=== PATIENT | female | born 1985 | race Caucasian/White ===

== ENCOUNTER 2021-03-06 09:45 | Emergency (ER) | payer MEDICAID, SELFPAY ==
[2021-03-06 09:49] VITALS: BP 111/82; PULSE 109; RESP 17; TEMP 36.3; O2SAT 93
--- NOTE | 2021-03-06 10:10 | ED.GENADUL_ITS ---
Discharge Plan Disposition Patient Disposition: HOME Condition: Stable Discharge Details Clinical Impression: Rash Primary Care Provider: Kamala Vilchis V ED Provider: Eber Schwab Home Meds and New Rx's Prescriptions: New fluconazole 150 mg tablet 150 mg PO QWEEK Qty: 2 RF: 0 prednisone 20 mg tablet 60 mg PO DAILY 5 Days Qty: 15 RF: 0 Discharge Instructions Instructions: Tinea Corporis (ED) Additional Instructions: you can take benadryl for the itching as well, follow dosing instructions on the packaging you can apply over the counter clotrimazole cream/ointment as well to the rash if not better after finishing the medications have the rash evaluated again if you feel more ill, have difficulty breathing or fevers return to the emergency department Medical Decision Making 36 yo female who denies chronic medical problems comes in with rash for 2 days on her back then spread to her chest and neck. She states the rash is itchy otherwise no other symptoms and feels well, denies dyspnea, gi symptoms or fevers. No new medications or environmental exposures she is aware of. She has multiple various size ring shaped rashes with central clearing and appears scaly which seems most consistent with tinea corporis. It does not slough, no erythema to suggest cellulitis and no mucous membrane involvement. Given the widespread nature of the rash will treat with fluconazole and have her use otc clotrimazole and for the itching try a short course of a steroid. Advised if the rash isn't improving with this to have it evaluated again and return precautions given Differential Diagnosis Differential Diagnosis: ringworm, hives HPI General Mode of arrival: ambulatory . Date/Time Provider Initiated Documentation: 03/06/21 09:45 . Limitations to Documentation: no limitations . Information obtained by: patient . History of Present Illness 36 year old F presents to the emergency department with the chief complaint of rash, described as moderate, Quality is described as other (itchy), and is localized to the neck, chest and back. Patient started experiencing this day(s) (2) and it has been constant. No relieving factors improve symptom(s), No exacerbating factors reported . Patient notes no other symptoms.. Patient did receive the following treatments prior to arrival, none Related Data Home Medications Medication Instructions Recorded Confirmed fluconazole 150 mg PO QWEEK #2 tab 03/06/21 prednisone 60 mg PO DAILY 5 Days #15 tab 03/06/21 Previous Rx's Medication Instructions Recorded fluconazole 150 mg PO QWEEK #2 tab 03/06/21 prednisone 60 mg PO DAILY 5 Days #15 tab 03/06/21 Allergies Allergy/AdvReac Type Severity Reaction Status Date / Time No Known Allergies Allergy Unverified 03/06/21 09:53 General Stated Complaint: RashLesion KE: 5 Review of Systems All systems reviewed & are unremarkable except as noted in HPI and below Constitutional Constitutional: Denies chills, Denies fever(s) and Denies weakness Cardiovascular Cardiovascular: Denies chest pain and Denies dyspnea Respiratory Respiratory: Denies cough and Denies dyspnea Gastrointestinal Gastrointestinal: Denies abdominal pain, Denies nausea and Denies vomiting Musculoskeletal Musculoskeletal: Denies joint swelling Neurologic Neurologic: Denies weakness [facility] Social History Smoking/Tobacco Use Status: Current every day Smoking risk assessment performed?: Yes Alcohol Intake: current Alcohol Intake frequency: a few times a week Drug use: Never Do you feel safe at home: Yes Do you feel safe in your relationship?: Yes Exam Const General: no acute distress Orientation: alert HENMT Head: normal to inspection Ears: external ears normal General nose exam: external nose normal Mouth: moist mucous membranes Eyes General: appearance normal, both eyes and all related structures Neck Neck: normal visual inspection Resp Effort & Inspection: normal respiratory effort and able to speak in complete sentences Cardio Rate: regular rate Skin General skin exam: elasticity normal Neuro General: patient alert and patient oriented x3 Extrem General: normal to inspection Psych Mental Status: mental status grossly normal Course Vital Signs Vital signs: Vital Signs Temperature 36.3 C L 03/06/21 09:49 Pulse 109 H 03/06/21 09:49 Respiratory Rate 17 03/06/21 09:49 Blood Pressure 111/82 03/06/21 09:49 Pulse Oximetry 93 03/06/21 09:49 Temperature 36.3 C L 03/06/21 09:49 Temperature Source Temporal Artery Scan 03/06/21 09:49 Pulse 109 H 03/06/21 09:49 Respiratory Rate 17 03/06/21 09:49 Respiratory Effort Non-Labored 03/06/21 09:54 Blood Pressure 111/82 03/06/21 09:49 Pulse Oximetry 93 03/06/21 09:49 Oxygen Delivery Method Room Air 03/06/21 09:49 Oxygen Flow Rate 0 03/06/21 09:49 Pain Level 0 03/06/21 09:49
== END 2021-03-06 10:16 | disposition home or self-care (01) ==
PROVIDERS: Emergency Provider Emergency Medicine; PCP Family Medicine
DX: R21 Rash and other nonspecific skin eruption (principal); B35.4 Tinea corporis
CPT/HCPCS: 99283

== ENCOUNTER 2021-03-19 09:34 | Emergency (ER) | payer MEDICAID, SELFPAY ==
[2021-03-19 09:38] VITALS: BP 118/83; PULSE 124; RESP 18; TEMP 36.6; O2SAT 96
[2021-03-19 09:51] VITALS: PULSE 114
--- NOTE | 2021-03-19 09:55 | ED.GENADUL_ITS ---
Discharge Plan Disposition Patient Disposition: HOME Condition: Stable Discharge Details Clinical Impression: Pityriasis rosea Primary Care Provider: Kamala Vilchis V ED Provider: Uyen Mar Home Meds and New Rx's Prescriptions: New hydroxyzine HCl 50 mg tablet 50 mg PO QID PRN (Reason: itching) Qty: 20 RF: 0 Discharge Instructions Instructions: Pityriasis rosea (ED) Additional Instructions: Your exam and history most consistent with pityriasis rosea. I have attached s ome educational information on this. You may use the hydroxyzine as prescribed to help with the itching. This can cause some drowsiness. Please encourage hydration. Please do not drink alcohol while taking this medication. Syphilis testing has been sent. As we discussed, this can cause a similar rash although less likely based on your history. We will call you with any positive results. We will also referral for local primary care, her care management team will reach out to you with an appointment in the next 1 to 2 weeks for reevaluation If you develop fever/chills, difficulty breathing, breath or other new/worsening symptoms please seek care urgently once again. Referrals: Kamala Vilchis MD [Primary Care Provider] - Medical Decision Making Patient is a pleasant 36-year-old female presenting today with chief complaint of rash. Patient was seen here on 03/06/2021 at which time she had similar rash at that time present on her back, neck and chest. She was treated at that time for fluconazole and prednisone. Despite this, the rash continued to spread. States that rash continues on the back and is now on the chest and abdomen. She reports is intensely itchy. She has been using topical steroids with no relief of her symptoms Patient status post tubal ligation. On exam, she appears nontoxic. She is tachycardic but this is downtrending. She reports quite anxious as well as had large amount of caffeine. She has scattered salmon-colored slightly raised lesions to her entire torso. Many of these do appear dry. Some have a more clear centers and others. Varying shapes and sizes. This does spare the area under the breast. No lesions on his face. Patient also been concerned about an area of swelling to the right lateral inferior eyelid which she noted yesterday. This area is most concerning for [place] only him. I not appreciate any significant erythema or tenderness to suggest infectious pathology. I do not see any evidence to suggest eye involvement. I recommended warm compresses. I advised he try to clean with baby shampoo. We discussed return precautions for this. Patient is able to show me a large ring lesion on the right shoulder which is larger than the others. She states that this is where initially began. On exam, I am concerned that this is a herald patch stent with pityriasis rosea. I discussed this concern with the patient. She has been using topical steroids. Failed treatment with steroids as well as antifungals. Plan to treat with Atarax to help with symptomatic management. Patient does not have a local primary care. Have asked that care management recheck to the patient with follow-up in the next 1 to 2 weeks for reevaluation of her rash. Return precautions were discussed. We will give her a dose of Atarax here. Patient was initially tachycardic with come down when at rest. I would associate with anxiety as well as her having an energy drink just prior to arrival. I do not see any evidence to suggest systemic illness. All of her questions and concerns were addressed and she is agreement this plan. HPI General Mode of arrival: ambulatory . Date/Time Provider Initiated Documentation: 03/19/21 09:55 . Limitations to Documentation: no limitations . Information obtained by: patient, RN notes reviewed and old records reviewed . History of Present Illness 36 year old F presents to the emergency department with the chief complaint of rash, described as severe, with intensity rated at 8. Quality is described as other (rash, itching), and is localized to the chest, back and abdomen. Patient started experiencing this day(s) and it has been constant. No relieving factors improve symptom(s), No exacerbating factors reported . Patient notes no other symptoms.. Patient did receive the following treatments prior to arrival, none Related Data Home Medications Medication Instructions Recorded Confirmed hydroxyzine HCl 50 mg PO QID PRN #20 tab 03/19/21 Previous Rx's Medication Instructions Recorded hydroxyzine HCl 50 mg PO QID PRN #20 tab 03/19/21 Allergies Allergy/AdvReac Type Severity Reaction Status Date / Time No Known Allergies Allergy Unverified 03/19/21 09:41 General Stated Complaint: RashLesion KE: 3 Review of Systems Constitutional Constitutional: Reports as per HPI, Denies chills and Denies fever(s) Eyes Eyes: Reports other (focal area of swelling inferior lateral right lid) ENT Ears, Nose, Mouth, and Throat: Denies mouth lesions, Denies odynophagia, Denies sore throat and Denies throat swelling Cardiovascular Cardiovascular: Denies chest pain and Denies dyspnea Respiratory Respiratory: Reports as per HPI and Denies dyspnea Gastrointestinal Gastrointestinal: Denies change in bowel habits, Denies nausea, Denies odynophagia and Denies vomiting Musculoskeletal Musculoskeletal: Reports as per HPI Integumentary/Breasts Skin/Breast: Reports as per HPI Neurologic Neurologic: Reports as per HPI, Denies sensory deficit and Denies paresthesias Allergic/Immunologic Allergic/Immunologic: Denies throat swelling PFSH Social History Smoking/Tobacco Use Status: Current every day Tobacco Type: cigarettes Smoking risk assessment performed?: Yes Alcohol Intake: current Alcohol Intake frequency: a few times a week Drug use: Never Substance use type: does not use Do you feel safe at home: Yes Do you feel safe in your relationship?: Yes Exam Const General: cooperative, healthy appearing, comfortable, no acute distress and well developed Nutritional Appearance: average body habitus and well nourished Orientation: alert and awake HENMS Head: normal to inspection Face and sinus: normal facial exam Mouth: oral mucosae normal, lip normal, tongue normal and oropharynx normal Throat: posterior oropharynx normal Eyes Eyes/upper lids images: 1. Small area of swelling with small white dot consistent with corneal lamp. Does not appear acutely infected. Does not involve the eye itself. No tearing, discharge, discoloration of conjunctiva Chest Chest: rash (Scattered small erythematous dry lesions. None noted under breast tissue) Resp Effort & Inspection: normal respiratory effort, able to speak in complete sentences and no respiratory distress Auscultation: clear to auscultation bilaterally Cardio Rate: regular rate Rhythm: regular rhythm Heart Sounds: S1 normal and S2 normal GI Inspection: other (rash) Skin Rashes: rashes noted (Patient has salmon-colored circular dry lesions to torso) Neuro General: patient alert and patient awake Cognition: normal cognition Speech: speech normal Gait: normal gait Sensory Exam: no sensory deficits noted Psych Appearance: grossly normal and well kempt Mental Status: mental status grossly normal Speech and Movement: speech and movement normal Course Vital Signs Vital signs: Vital Signs Temperature 36.6 C 03/19/21 09:38 Pulse 124 H 03/19/21 09:38 Respiratory Rate 18 03/19/21 09:38 Blood Pressure 118/83 03/19/21 09:38 Pulse Oximetry 96 03/19/21 09:38 Temperature 36.6 C 03/19/21 09:38 Temperature Source Skin 03/19/21 09:38 Pulse 114 H 03/19/21 09:51 Respiratory Rate 18 03/19/21 09:38 Respiratory Effort Non-Labored 03/19/21 09:45 Blood Pressure 118/83 03/19/21 09:38 Blood Pressure Position Supine 03/19/21 09:38 Pulse Oximetry 96 03/19/21 09:38 Oxygen Delivery Method Room Air 03/19/21 09:38 Oxygen Flow Rate 0 03/19/21 09:38 Pain Level 8 03/19/21 09:38 Comment 03/19/21 09:51
--- NOTE | 2021-03-19 10:25 | NUR.NOTE ---
referral to cm for pcp for rash
[2021-03-19] MEDS: hydrOXYzine HCL 25 MG TAB 50 MG PO (10:26)
[2021-03-19 10:45] VITALS: PULSE 110
[2021-03-21 10:38] LABS: Syphilis Serology (RPR) Negative (Negative)
== END 2021-03-19 10:46 | disposition home or self-care (01) ==
PROVIDERS: Emergency Provider Physician Assistant; PCP Family Medicine
DX: L42 Pityriasis rosea (principal)
CPT/HCPCS: 36415; 99283; 86592

== ENCOUNTER 2022-02-01 23:07 | Emergency (ER) | payer MEDICAID, SELFPAY ==
[2022-02-01 23:36] VITALS: BP 123/87; PULSE 104; RESP 18; TEMP 36.8; O2SAT 96
--- NOTE | 2022-02-01 23:41 | ED.GENADUL_ITS ---
Discharge Plan Disposition Patient Disposition: HOME Condition: Improving Discharge Details Clinical Impression: Odontalgia Primary Care Provider: Kamala Vilchis V ED Provider: Adriel Toussaint Home Meds and New Rx's Prescriptions: New penicillin V potassium 500 mg tablet 500 mg PO TID 10 Days Qty: 30 0RF Discharge Instructions Instructions: Toothache (ED) Additional Instructions: Please call your dentist in the morning and make An appointment for follow-up. Take penicillin 4 times daily for the first day and then 3 times daily by prescription for 10 days. Warm salt water gargles will aid in speeding healing. Tylenol and/or ibuprofen as needed for pain. May use dental wax for comfort. Return for any acute concern or worsening. Medical Decision Making 37-year-old female presents from home with 2+ days of achy right jaw pain. She had a broken tooth there for some time and previous dental infections. Today shows evidence of periapical infection surrounding tooth #2. Discussed with her local anesthetic which she declines. We will place her on a course of penicillin and she is to follow-up with her dentist. She understands indications to seek reevaluation. HPI General Mode of arrival: ambulatory . Date/Time Provider Initiated Documentation: 02/01/22 23:26 . Limitations to Documentation: no limitations . Information obtained by: patient . History of Present Illness 37 year old F presents to the emergency department with the chief complaint of Right upper dental pain, broken tooth, described as moderate and similar to prior episodes, Quality is described as dull and constant, and is localized to the mouth and right. Patient reports no radiation. Patient started experiencing this day(s) and it has been intermittent. No relieving factors improve symptom(s), No exacerbating factors reported . Patient notes denies fever/chills, nausea/vomiting and shortness of breath. Patient did receive the following treatments prior to arrival, NSAID Related Data Home Medications Medication Instructions Recorded Confirmed penicillin V potassium 500 mg 500 mg PO TID 10 days #30 tabs 02/01/22 tablet Previous Rx's Medication Instructions Recorded penicillin V potassium 500 mg 500 mg PO TID 10 days #30 tabs 02/01/22 tablet Allergies Allergy/AdvReac Type Severity Reaction Status Date / Time No Known Allergies Allergy Unverified 02/01/22 23:37 General Stated Complaint: DentalOral KE: 4 Review of Systems Narrative: No drooling, no fever, no change to voice. Otherwise well. 6 systems were reviewed PFS All Active Problems (Updated 02/01/22 @ 23:43 by Adriel Toussaint MD) Rash (Acute) Pityriasis rosea (Acute) Odontalgia (Acute) Social History Smoking/Tobacco Use Status: Current every day Tobacco Type: cigarettes Smoking risk assessment performed?: Yes Alcohol Intake: current Alcohol Intake frequency: a few times a week Drug use: Never Substance use type: does not use Do you feel safe at home: Yes Do you feel safe in your relationship?: Yes Exam Narrative Exam Narrative: GEN: awake, alert, oriented 3. Pleasant, well groomed, interactive. HEAD: Normocephalic, atraumatic ENT: Mucous membranes moist, oropharynx with 3 broken costs of tooth #2. Surrounding mild buccal swelling without fluctuance, tympanic membranes occluded with cerumen, External ear exam unremarkable EYES: PERRL, EOMI NECK: Full ROM, no EDITH, no menigismus CHEST/RESP: Nontender, clear to auscultation bilateral, no wheeze/rhonchi/rales CARDIOVASCULAR: RRR, no murmur, rub rupert. 2+ Rad pulse bilateral Neuro: Grossly normal neurologic exam, conversant, interactive. Psych: Speech fluent, thoughts congruent, affect normal Course Vital Signs Vital signs: Vital Signs Temperature 36.8 C 02/01/22 23:36 Pulse 104 H 02/01/22 23:36 Respiratory Rate 18 02/01/22 23:36 Blood Pressure 123/87 02/01/22 23:36 Pulse Oximetry 96 02/01/22 23:36 Temperature 36.8 C 02/01/22 23:36 Temperature Source Skin 02/01/22 23:36 Pulse 104 H 02/01/22 23:36 Respiratory Rate 18 02/01/22 23:36 Blood Pressure 123/87 02/01/22 23:36 Blood Pressure Position Sitting 02/01/22 23:36 Pulse Oximetry 96 02/01/22 23:36 Oxygen Delivery Method Room Air 02/01/22 23:36 Oxygen Flow Rate 0 02/01/22 23:36 Pain Level 9 02/01/22 23:36
[2022-02-01] MEDS: Penicillin V POTASSIUM 500 MG TAB, 4 TABS/BTL PO (23:45)
== END 2022-02-01 23:48 | disposition home or self-care (01) ==
PROVIDERS: Emergency Provider Emergency Medicine; PCP Family Medicine
DX: K04.5 Chronic apical periodontitis; F17.210 Nicotine dependence, cigarettes, uncomplicated
CPT/HCPCS: 99283; 99284

== ENCOUNTER 2022-11-19 04:48 | Emergency (ER) | payer MEDICAID, SELFPAY ==
[2022-11-19 04:51] VITALS: BP 125/84; PULSE 105; RESP 18; TEMP 36.6; O2SAT 96
--- NOTE | 2022-11-19 05:04 | ED.GENADUL_ITS ---
Discharge Plan Disposition Patient Disposition: Home Condition: Stable Discharge Details Clinical Impression: Cervical myofascial strain, Cervical radiculopathy Primary Care Provider: Kamala Vilchis V ED Provider: Trang Bain Home Meds and New Rx's Prescriptions: New methocarbamol 500 mg tablet 500 mg PO Q6H PRN (Reason: muscle spasm) Qty: 14 0RF prednisone 20 mg tablet See Rx Instructions .ROUTE .COMPLEX Qty: 18 0RF Rx Instructions: Take 3 tabs daily for 3 days, then 2 tabs daily for 3 days, then 1 tab daily for 3 days. Discharge Instructions Instructions: Cervical Strain (ED), Cervical Radiculopathy (ED) Additional Instructions: Your symptoms appear consistent with a cervical strain causing referred pain to your right shoulder and right upper arm. Alternate ice and heat to the affected area(s) several times daily for 20 minutes at a time. Alternate tylenol and motrin as needed and directed for pain. Prescriptions for steroids and muscle relaxers have been sent electronically to your pharmacy to take as directed. You have been placed on care management list to arrange for a follow-up appointment with the primary care doctor to establish care and for reevaluation in the next 2 weeks. Return immediately to the emergency department if you develop any worsening or new concerning symptoms. Discharge Data Discharge Date/Time-TO BE ENTERED AT DEPARTURE: 11/19/22 05:32 Discharge Physician: Trang Bain Medical Decision Making 37-year-old female presents with right shoulder and right upper posterior arm pain for the past 2 days that she awoke with from sleep. Denies any paresthesias, chest pain, headache or difficulty breathing. Patient appears fairly comfortable and nontoxic. She has reproducible pain in her right cervical paraspinal region and right trapezius with extension, rotation and side bending of her head. She is tenderness to palpation of the right cervical paraspinal region and along the right trapezius. She is no reproducible pain in her right shoulder or elbow with range of motion. There is no midline cervical spinal tenderness. She has no focal deficits in the bilateral upper extremities and is neurovascularly intact with palpable distal upper extremity pulses. Negative Spurling's test on the right. Suspect cervical strain/spasm with radicular pain. As she has no focal deficits, no indication for urgent cervical spine imaging at this time. She has no sore throat, fever or posterior headache to suggest an acute infectious causes. Patient drove herself to the ED. Urine test ordered but she declined and denies . She was given a dose of prednisone and ibuprofen here. Prescriptions for prednisone and methocarbamol sent electronically to her pharmacy. Advised to follow up with the primary care doctor for re-evaluation. Usual and customary return precautions given prior to discharge. Medical Records Medical records reviewed: Yes I reviewed the patient's medical records. HPI General Mode of arrival: ambulatory . Date/Time Provider Initiated Documentation: 11/19/22 04:52 . Limitations to Documentation: no limitations . Information obtained by: patient . HPI Narrative: Patient is a 37-year-old [id number] female who presents with right shoulder and upper arm pain for the past 3 days after she awoke with it in the or[place]. Patient states she awoke with pain 2 mornings ago noted in her right trapezius and right upper posterior arm. She states the pain is worse with laying down and better with lifting her arm above her head. She denies any tingling or weakness in her right arm. She has used [id number] topical lotions, ointments and salves without relief. She has taken Aleve and Tylenol without relief. Patient has not taken any medication for this yet this morning. She denies any known injury. Patient denies any fever, sore throat, chest pain, difficulty breathing. Related Data Home Medications Medication Instructions Recorded Confirmed methocarbamol 500 mg tablet 500 mg PO Q6H PRN muscle spasm #14 11/19/22 tabs prednisone 20 mg tablet See Rx Instructions .Route 11/19/22 .COMPLEX #18 tabs Previous Rx's Medication Instructions Recorded methocarbamol 500 mg tablet 500 mg PO Q6H PRN muscle spasm #14 11/19/22 tabs prednisone 20 mg tablet See Rx Instructions .Route 11/19/22 .COMPLEX #18 tabs Allergies Allergy/AdvReac Type Severity Reaction Status Date / Time No Known Allergies Allergy Unverified 11/19/22 04:54 General Stated Complaint: Orthopedic KE: 4 Review of Systems All systems reviewed & are unremarkable except as noted in HPI and below Constitutional Constitutional: Reports as per HPI, Denies chills and Denies fever(s) Eyes Eyes: Denies blurry vision ENT Ears, Nose, Mouth, and Throat: Denies dizziness, Reports neck pain, Denies sore throat and Denies throat swelling Cardiovascular Cardiovascular: Denies chest pain and Denies dyspnea Respiratory Respiratory: Denies cough and Denies dyspnea Gastrointestinal Gastrointestinal: Denies abdominal pain, Denies diarrhea and Denies vomiting Genitourinary Genitourinary: Denies hematuria and Denies dysuria Musculoskeletal Musculoskeletal: Denies back pain, Reports neck pain and Denies numbness Comments: Right shoulder/upper arm pain Integumentary/Breasts Skin/Breast: Denies lesions and Denies rash Neurologic Neurologic: Denies dizziness, Denies localized weakness and Denies numbness Allergic/Immunologic Allergic/Immunologic: Denies throat swelling PFSH All Active Problems (Updated 11/19/22 @ 05:22 by Trang Bain DO) Rash (Acute) Pityriasis rosea (Acute) Cervical myofascial strain (Acute) Cervical radiculopathy (Acute) Social History Smoking/Tobacco Use Status: Current every day Tobacco Type: cigarettes Smoking risk assessment performed?: Yes Alcohol Intake: current Alcohol Intake frequency: a few times a week Drug use: Never Substance use type: does not use Do you feel safe at home: Yes Do you feel safe in your relationship?: Yes Exam Const General: cooperative, healthy appearing and no acute distress Orientation: alert, awake and oriented x3 HENMT Head: normal to inspection Mouth: oral mucosae normal Eyes General: appearance normal, both eyes and all related structures Neck Neck: normal visual inspection Resp Effort & Inspection: normal respiratory effort and able to speak in complete sentences Cardio Rate: regular rate Back/Spine/Pelvis Cervical Spine: cervical muscular tenderness (R paraspinal ), pain with cervical ROM (extension, L head rotation/sidebending) and No cervical spinal tenderness Thoracic/Lumbar Spine: No thoracic spinal tenderness Back/spine/pelvis image: 1. Tenderness to palpation right cervical paraspinal region and overlying right trapezius. Skin General skin exam: no rashes or lesions noted Neuro General: patient alert, patient awake and patient oriented x3 Motor: muscle tone normal throughout Other: Motor/sensory grossly intact bilateral upper extremities. Muscle strength 5/5 bilateral upper extremities. Extrem General: normal to inspection and full ROM Other: Patient has fairly normal range of motion in the right shoulder without pain within the right shoulder joint. She has pain in the right trapezius with abduction of right shoulder past 90 degrees causing pain in right posterior upper arm. Bilateral radial pulses intact. Psych Appearance: grossly normal Affect: normal affect Course Vital Signs Vital signs: Vital Signs Temperature 97.9 F 11/19/22 04:51 Pulse 105 H 11/19/22 04:51 Respiratory Rate 18 11/19/22 04:51 Blood Pressure 125/84 11/19/22 04:51 Pulse Oximetry 96 11/19/22 04:51 Temperature 97.9 F 11/19/22 04:51 Temperature Source Oral 11/19/22 04:51 Pulse 105 H 11/19/22 04:51 Respiratory Rate 18 11/19/22 04:51 Respiratory Effort Normal 11/19/22 04:54 Blood Pressure 125/84 11/19/22 04:51 Blood Pressure Position Sitting 11/19/22 04:51 Pulse Oximetry 96 11/19/22 04:51 Oxygen Delivery Method Room Air 11/19/22 04:51 Oxygen Flow Rate 0 11/19/22 04:51 Pain Level 8 11/19/22 04:51
[2022-11-19] MEDS: predniSONE 20 MG TAB 60 MG PO (05:29)
[2022-11-19] MEDS: Ibuprofen 600 MG TAB PO (05:29)
--- NOTE | 2022-11-19 05:52 | NUR.NOTE ---
Pt placed on care management to establish care and f/u on neck and shoulder pain
== END 2022-11-19 05:32 | disposition home or self-care (01) ==
PROVIDERS: Emergency Provider Physician Assistant; PCP Family Medicine
DX: S16.1XXA Strain of muscle, fascia and tendon at neck level, initial encounter (principal); X58.XXXA Exposure to other specified factors, initial encounter; M54.12 Radiculopathy, cervical region
CPT/HCPCS: 81025; 99283; 99284; J7512